=== PATIENT | female | born 1990 | race African-American/Black ===

== ENCOUNTER 2022-10-02 22:00 | Emergency (ER) | payer OTHER ==
[2022-10-02] MEDS ORDERED: Acetaminophen 325 MG TAB ONE (23:06)
[2022-10-02 23:37] LABS: Bilirubin Neg (Negative); Blood, Urine 10 (Negative); Clarity Cloudy (Clear); Glucose, Urine (Dipstick) Normal (Negative); Ketone, Urine 5 mg/dL (Negative); Leukocyte 100 (Negative); Nitrite Negative (Negative); Protein, Urine (Dipstick) 30 mg/dl (Neg-Trace); Specific Gravity, Urine 1.025 (1.005-1.030)
[2022-10-02] MEDS ORDERED: cefTRIAXone\\ROCEPHIN 500 MG VIAL ONE (23:38)
[2022-10-02] MEDS ORDERED: Lidocaine 1% PF 5 ML VIAL ONE (23:38)
[2022-10-02 23:43] LABS: Pregnancy Test - Urine (BHCG) Negative (Negative); Pregu Control Background? CLEAR/WHITE (CLR/WHITE); Pregu Control Bar Appear? YES (CONTROL BAR); Specific Gravity 1.025 (1.002-1.036)
[2022-10-02 23:48] LABS: Bacteria/HPF 2+ HPF (None Seen); RBC/HPF 0-3 HPF (0-3); Squamous Epithelial Greater than 50 HPF (0-3)
[2022-10-03] MEDS ORDERED: Ketorolac Tromethamine 30 MG/ML VIAL ONE (00:15)
[2022-10-03 00:37] LABS: HIV (1/2) Antibody/Antigen Non-Reactive (NonReactive); HIV 1/2 INDEX 0.12 S/CO (<1.00)
[2022-10-03 23:17] LABS: Chlamydia by PCR Not Detected (NotDetected); GC by PCR Not Detected (NotDetected)
== END 2022-10-03 00:36 | disposition home or self-care (01) ==
LOC: CSHERS 22:00
DX: N70.03 Acute salpingitis and oophoritis (principal); M79.605 Pain in left leg; I10 Essential (primary) hypertension; J45.909 Unspecified asthma, uncomplicated; F17.210 Nicotine dependence, cigarettes, uncomplicated
CPT/HCPCS: 36415; 81003; 81015; 81025; 87389; 87480; 87491; 87510; 87591; 87660; 96372; 99283; J0696; J1885

== ENCOUNTER → 2025-07-08 | Emergency (ER) | payer MEDICAID | LOC: CSHERS 23:25 | DX: Z53.21 Procedure and treatment not carried out due to patient leaving prior to being seen by health care provider (principal) ==